=== PATIENT | male | born 1975 | race Caucasian/White ===

== ENCOUNTER 2017-04-26 11:36 | Inpatient (IN) | payer OTHER ==
[~2017-04-26] VITALS: Ht 177.8 cm; Wt 85.2 kg
[2017-04-26 11:45] VITALS: Ht 177.8 cm; Wt 85.2 kg
[2017-04-26] MEDS ORDERED: SODIUM CHLORIDE 0.9% 1000ML 1,000 ML IV ONE (12:15)
[2017-04-26] MEDS ORDERED: ONDANSETRON INJ 2 MG/ML 2 ML VIAL IV PRN ×3 (12:15→18:45)
--- NOTE | 2017-04-26 12:24 | EMERGENCY ROOM VISIT NOTE ---
History Report prepared by Oralia: Memo Cox Under the Supervision of: Dr. Eleno Jon M.D. First contact with patient: 12:01 Chief Complaint: ABDOMINAL PAIN Stated Complaint: ABD. 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 Woke this am with fever, sweating, nausea, vomiting, abd pain into back. "It's really hard to pee too". Hx of kidney stones History of Present Illness The patient is a 41 year old male who presents to the Emergency Room with complaints of constant abdominal pain and tightness starting last night after doing some heavy lifting loading his truck. He states that he then went to bed and woke up two hours later nauseous, vomiting, diaphoretic, and having pain that goes into his back. He additionally states that he had some hematuria, and he was not able to urinate very much. He additionally states that his last bowel movement was yesterday morning. The patient states that he is not currently on any blood thinners. Source of History: patient Onset: last night Position: abdomen Quality: other (tight) Timing: constant Associated Symptoms: + nausea, + vomiting, + back pain, + urinary symptoms Review of Systems All systems have been listed, reviewed, and are negative other than those previously mentioned. Please see Additional Medical History Sheet. Past Medical & Surgical Medical Problems: (1) Kidney stone Social History Smoking Status: Current Every Day Smoker Marital Status: Occupation Status: employed Current/Historical Medications No Active Prescriptions or Reported Meds Allergies Coded Allergies: No Known Allergies (Unverified , 04/26/17) Physical Exam Vital Signs Date Time Temp Pulse Resp B/P (MAP) Pulse Ox O2 Delivery O2 Flow Rate FiO2 04/26/17 19:40 81 16 110/74 95 Nasal Cannula 4 04/26/17 19:25 37.4 80 16 110/73 95 Nasal Cannula 4 04/26/17 19:15 82 16 123/76 95 Nasal Cannula 4 04/26/17 19:05 89 16 130/79 93 Mask 12 04/26/17 18:55 89 16 130/79 93 Mask 12 04/26/17 18:46 37.3 93 16 135/78 94 Mask 10 04/26/17 15:39 96 20 132/98 98 04/26/17 14:08 72 16 128/88 98 Room Air 04/26/17 12:48 74 04/26/17 12:24 73 20 130/90 97 Room Air 04/26/17 12:24 97 Room Air 04/26/17 11:45 36.8 89 20 130/92 96 Room Air Physical Exam GENERAL: Patient awake, alert, oriented x 3. Patient follows commands. Patient does not appear toxic. Patient is adequately hydrated and well- nourished. SKIN: No erythema, pallor, cyanosis or rash HEENT: Edentulous. Normal head, pupils equal, reactive to light and accommodation. Oral cavity and posterior pharynx appear normal. Neck: Without adenopathy, no neck vein distention. LUNGS: Clear to auscultation. No wheezes, no rales, no rhonchi. HEART: No murmurs. No gallops. No rubs ABDOMEN: Diffuse tenderness with guarding. No masses, no rebound, no hepatomegaly or splenomegaly. EXTREMITIES: No signs of trauma. No pedal or pretibial edema. No calf or thigh tenderness. NEUROLOGIC: Cranial nerves II-XII within normal limits. No gross motor sensory function deficits. Medical Decision & Procedures ER Provider Diagnostic Interpretation: Radiology results as stated below per my review and radiologist interpretation: CT SCAN OF THE ABDOMEN AND PELVIS WITHOUT CONTRAST CLINICAL HISTORY: Severe mid abdominal pain and nausea. VOMITING COMPARISON STUDY: No previous studies for comparison. TECHNIQUE: CT scan of the abdomen and pelvis was performed from the lung bases to the proximal femurs. Images are reviewed in the axial, sagittal, and coronal planes. IV contrast was not administered for this examination. A dose lowering technique was utilized adhering to the principles of ALARA. CT DOSE: 483.43 mGy.cm FINDINGS: Lower chest: There are by basilar round glass opacities, likely atelectatic. Liver: The unenhanced liver is normal in size, contour, and attenuation. There is no intrahepatic biliary ductal dilatation. Gallbladder: Unremarkable. Spleen: Normal in size and attenuation. Pancreas: Unremarkable. Adrenal glands: Unremarkable. Kidneys: No renal, ureteral, or bladder calculi are visualized. Bowel: There are no transition zones indicate bowel obstruction. There is mild appendiceal dilatation. There is infiltration of the periappendiceal fat. Although there is gas present within the appendiceal lumen, the findings must nevertheless be viewed as suspicious for acute appendicitis. Surgical consultation is recommended.. Peritoneum: There is no intraperitoneal free air or abdominal ascites. Vasculature: The abdominal aorta is normal in course and caliber. Adenopathy: There is a nonpathologically enlarged periappendiceal lymph nodes, likely reactive. Pelvic viscera: There are few prostatic calcifications present. Skeletal structures: No destructive osseous lesions are seen. IMPRESSION: 1. Mild appendiceal dilatation 2. Although there is gas present within the appendiceal lumen, there are extensive periappendiceal inflammatory changes. The findings must therefore be viewed as suspicious for acute appendicitis and surgical consultation is recommended. Electronically signed by: John Mcintyre M.D. 04/26/2017 12:55 PM Dictated Date/Time: 04/26/2017 12:48 PM Laboratory Results 04/26/17 12:00 Red Blood Count 4.86, Mean Corpuscular Volume 94.9, Mean Corpuscular Hemoglobin 33.1, Mean Corpuscular Hemoglobin Concent 34.9, Mean Platelet Volume 10.6, Neutrophils (%) (Auto) 91.5, Lymphocytes (%) (Auto) 3.5, Monocytes (%) (Auto) 4.7, Eosinophils (%) (Auto) 0.0, Basophils (%) (Auto) 0.0, Neutrophils # (Auto) 14.12, Lymphocytes # (Auto) 0.54, Monocytes # (Auto) 0.73, Eosinophils # (Auto) 0.00, Basophils # (Auto) 0.00 04/26/17 12:00 Test 04/26/17 11:45 04/26/17 12:00 Urine Color JACOB Urine Appearance TURBID (CLEAR) Urine pH 5.5 (4.5-7.5) Urine Specific [place] 1.025 (1.000-1.030) Urine Protein 1+ (NEG) Urine Glucose (UA) TRACE (NEG) Urine Ketones 1+ (NEG) Urine Occult Blood NEG (NEG) Urine Nitrite NEG (NEG) Urine Bilirubin 2+ (NEG) Urine Urobilinogen POS (NEG) Urine Leukocyte Esterase NEG (NEG) Urine RBC 0-4 /hpf (0-4) Urine WBC 0 /hpf (0-5) Urine Epithelial Cells 0-5 /lpf (0-5) Urine Amorphous Sediment PRESENT (NONE PRSENT) Urine Bacteria NEG (NEG) White Blood Count 15.44 K/uL (4.8-10.8) Red Blood Count 4.86 M/uL (4.7-6.1) Hemoglobin 16.1 g/dL (14.0-18.0) Hematocrit 46.1 % (42-52) Mean Corpuscular Volume 94.9 fL (80-100) Mean Corpuscular Hemoglobin 33.1 pg (25-34) Mean Corpuscular Hemoglobin Concent 34.9 g/dl (32-36) Platelet Count 232 K/uL (130-400) Mean Platelet Volume 10.6 fL (7.4-10.4) Neutrophils (%) (Auto) 91.5 % Lymphocytes (%) (Auto) 3.5 % Monocytes (%) (Auto) 4.7 % Eosinophils (%) (Auto) 0.0 % Basophils (%) (Auto) 0.0 % Neutrophils # (Auto) 14.12 K/uL (1.4-6.5) Lymphocytes # (Auto) 0.54 K/uL (1.2-3.4) Monocytes # (Auto) 0.73 K/uL (0.11-0.59) Eosinophils # (Auto) 0.00 K/uL (0-0.5) Basophils # (Auto) 0.00 K/uL (0-0.2) RDW Standard Deviation 44.7 fL (36.4-46.3) RDW Coefficient of Variation 12.8 % (11.5-14.5) Immature Granulocyte % (Auto) 0.3 % Immature Granulocyte # (Auto) 0.05 K/uL (0.00-0.02) Anion Gap 6.0 mmol/L (3-11) Est Creatinine Clear Calc Drug Dose 98.3 ml/min Estimated GFR () 106.4 Estimated GFR (Non- 91.8 BUN/Creatinine Ratio 11.3 (10-20) Calcium Level 9.6 mg/dl (8.5-10.1) Total Bilirubin 1.1 mg/dl (0.2-1) Aspartate Amino Transf (AST/SGOT) 21 U/L (15-37) Alanine Aminotransferase (ALT/SGPT) 31 U/L (12-78) Alkaline Phosphatase 66 U/L (45-117) Total Protein 8.4 gm/dl (6.4-8.2) Albumin 4.3 gm/dl (3.4-5.0) Globulin 4.1 gm/dl (2.5-4.0) Albumin/Globulin Ratio 1.0 (0.9-2) Lipase 115 U/L (73-393) Laboratory results as stated above per my review. Medications Administered Medications (Trade) Dose Ordered Sig/Emile Route Start Time Stop Time Status Last Admin Dose Admin Morphine Sulfate (MoRPHine SULFATE INJ) 8 mg Q1H PRN IV 04/26/17 12:15 05/10/17 12:14 04/26/17 14:08 8 MG Ondansetron HCl (Zofran Inj) 4 mg Q1HWA PRN IV 04/26/17 12:15 05/26/17 12:14 04/26/17 12:26 4 MG Sodium Chloride 1,000 ml @ 5,600 mls/hr Q11M ONCE IV 04/26/17 12:15 04/26/17 12:25 DC 04/26/17 12:25 5,600 MLS/HR Cefazolin Sodium (Ancef Inj) 1,000 mg STK-MED ONCE .ROUTE 04/26/17 15:38 04/26/17 15:39 DC 04/26/17 18:31 1,000 MG Heparin Sodium (Porcine) (Heparin Iv Bolus) 10,000 unit STK-MED ONCE .ROUTE 04/26/17 15:39 04/26/17 15:40 DC 04/26/17 18:32 5,000 UNIT Bupivacaine HCl (Marcaine 0.5% MPF Inj) 30 ml STK-MED ONCE .ROUTE 04/26/17 15:39 04/26/17 15:40 DC 04/26/17 18:36 30 ML Cefazolin Sodium (Ancef 2000mg/60 ml D5W) 2,000 mg STK-MED ONCE IV 04/26/17 15:51 04/26/17 15:52 DC 04/26/17 16:02 2,000 MG ECG Indication: abdominal pain Rate (beats per minute): 74 Rhythm: normal sinus Findings: no acute ischemic change, no ectopy ED Course 1201: Past medical records reviewed. The patient was evaluated in room C10. A complete history and physical examination was performed. 1215: Sodium Chloride 1000 ml @ 5600 mls/hr IV, Zofran Inj 4mg IV, Morphine Sulfate Inj 8mg IV 1327: I reevaluated the patient, and I updated him on the treatment plan, and he is agreeable. 1332: Discussed the patient's case with Poornima Tran PA-C. The patient will be evaluated for further management. Medical Decision Nurses notes reviewed. Medical history sheet reviewed. Differential diagnosis includes but is not limited to: Bowel obstruction, abdominal hernia, kidney stone, pancreatitis, and diverticulitis. Patient appears to have an acute abdomen. Multiple labs and imaging were obtained. Please see results as listed above. CT is most consistent with appendicitis. White count is minimally elevated. Pain medications were given. IV fluids were administered. Consultation was obtained with surgery. The patient was taken to the OR for an appendectomy. Medication Reconcilliation Current Medication List: was personally reviewed by me Blood Pressure Screening Patient's blood pressure: Normal blood pressure Consults Time Called: 1327 Consulting Physician: Poornima Tran PA-C Returned Call: [phone] Discussed the patient's case with Poornima Tran PA-C. The patient will be evaluated for further management. Impression Primary Impression: Appendicitis Scribe Attestation The scribe's documentation has been prepared under my direction and personally reviewed by me in its entirety. I confirm that the note above accurately reflects all work, treatment, procedures, and medical decision making performed by me. Departure Information Dispostion Being Evaluated By Surgeon Prescriptions No Active Prescriptions or Reported Meds Referrals No Doctor, Assigned (PCP) Patient Instructions [facility]
[2017-04-26] MEDS: MoRPHine SULFATE 10 MG/ML CARP/VIAL IV PRN ×2 (12:25→14:08)
[2017-04-26 12:27] LABS: COMPLETE YES; HEMATOCRIT 46.1 % (42-52); IG% 0.3 %; LYMPH % 3.5 %; LYMPH ABS # 0.54 K/uL (1.2-3.4); MEAN CELL VOLUME 94.9 fL (80-100); MEAN CORPUSCULAR HEMOGLOBIN 33.1 pg (25-34); MEAN CORPUSCULAR HGB CONC 34.9 g/dl (32-36); MEAN PLATELET VOLUME 10.6 fL (7.4-10.4); MONO % 4.7 %; NEUT % 91.5 %; PLATELET COUNT 232 K/uL (130-400); RED BLOOD COUNT 4.86 M/uL (4.7-6.1); WHITE BLOOD COUNT 15.44 K/uL (4.8-10.8)
[2017-04-26 12:32] LABS: BUN/CREATININE RATIO 11.3 (10-20); CALCIUM 9.6 mg/dl (8.5-10.1); POTASSIUM 3.8 mmol/L (3.5-5.1)
--- NOTE | 2017-04-26 12:56 | DIAGNOSTIC IMAGING REPORT ---
CT SCAN OF THE ABDOMEN AND PELVIS WITHOUT CONTRAST CLINICAL HISTORY: Severe mid abdominal pain and nausea. VOMITING COMPARISON STUDY: No previous studies for comparison. TECHNIQUE: CT scan of the abdomen and pelvis was performed from the lung bases to the proximal femurs. Images are reviewed in the axial, sagittal, and coronal planes. IV contrast was not administered for this examination. A dose lowering technique was utilized adhering to the principles of ALARA. CT DOSE: 483.43 mGy.cm FINDINGS: Lower chest: There are by basilar round glass opacities, likely atelectatic. Liver: The unenhanced liver is normal in size, contour, and attenuation. There is no intrahepatic biliary ductal dilatation. Gallbladder: Unremarkable. Spleen: Normal in size and attenuation. Pancreas: Unremarkable. Adrenal glands: Unremarkable. Kidneys: No renal, ureteral, or bladder calculi are visualized. Bowel: There are no transition zones indicate bowel obstruction. There is mild appendiceal dilatation. There is infiltration of the periappendiceal fat. Although there is gas present within the appendiceal lumen, the findings must nevertheless be viewed as suspicious for acute appendicitis. Surgical consultation is recommended.. Peritoneum: There is no intraperitoneal free air or abdominal ascites. Vasculature: The abdominal aorta is normal in course and caliber. Adenopathy: There is a nonpathologically enlarged periappendiceal lymph nodes, likely reactive. Pelvic viscera: There are few prostatic calcifications present. Skeletal structures: No destructive osseous lesions are seen. IMPRESSION: 1. Mild appendiceal dilatation 2. Although there is gas present within the appendiceal lumen, there are extensive periappendiceal inflammatory changes. The findings must therefore be viewed as suspicious for acute appendicitis and surgical consultation is recommended. Electronically signed by: John Mcintyre M.D. 04/26/2017 12:55 PM Dictated Date/Time: 04/26/2017 12:48 PM
[2017-04-26 13:55] LABS: MANUAL MICROSCOPIC REQUIRED? YES; URINE APPEARANCE TURBID (CLEAR); URINE COLOR AMBER; URINE NITRITE NEG (NEG); URINE PH 5.5 (4.5-7.5); URINE SPECIFIC GRAVITY 1.025 (1.000-1.030); UROBILINOGEN POS (NEG)
[2017-04-26 14:19] LABS: REVIEW REQ? NO; URINE BILIRUBIN 2+ (NEG)
[2017-04-26 14:23] LABS: URINE RBC 0-4 /hpf (0-4); URINE WBC 0 /hpf (0-5)
[2017-04-26 14:24] LABS: URINE AMORPHOUS SEDIMENT PRESENT (NONE PRSENT); URINE BACTERIA NEG (NEG); ZZUR CULT IF INDIC CLEAN CATCH NO
--- NOTE | 2017-04-26 14:37 | History and Physical ---
History & Physical Date Apr 26, 2017. (Poornima Tran ., FARHAN) Chief Complaint Abdominal pain, nausea, vomiting, sweats (Poornima Tran PA-C) History of Present Illness Mr. Rowan is a pleasant 41 year-old male who presented to emergency department today with complaint of generalized abdominal pain with associated nausea, vomiting, chills, fever, and sweats that started abruptly at 2 am. 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 States he never had this type of pain before. Describes pain as chronic generalized pain, dull, and sharp pain in the Right and left lower abdomen. Last bowel movement was yesterday morning. States it was difficulty to urinate because of the pain with a little bit of blood. Denies of any vomiting blood, diarrhea, constipation, blood in stools, black/ tarry stools, chest pain, shortness of breath, or difficulty breathing. Labs showed a leukocytosis of 15 , LFTs within normal limits. Total bilirubin slightly up at 1.1. CT scan of abdomen and pelvis showed slightly dilated appendix with gas present in the appendix lumen and periappendiceal inflammation in which acute appendicitis could not be ruled out. Since being in ER states he still has generalized abdominal pain, nothing seems to make better. Has tried changing positions without any relief. Was given pain medication and helped somewhat. (Poornima Tran, AMBERC) Past Medical/Surgical History Medical Problems: (1) Kidney stone (2) Occasional GERD (Poornima Tran PA-C) Additional History Hepatic Disease: No Endocrine Disorder: No Kidney Disease: No Hypertension: No Heart Disease: No Bleeding Tendencies: No Infectious Diseases: No (Poornima Tran PA-C) Allergies Coded Allergies: No Known Allergies (Unverified , 04/26/17) Home Medications No Active Prescriptions or Reported Meds Physical Examination Skin: warm/dry, no rash Eyes: sclerae normal Head: normocephalic, atraumatic Neck: supple, trachea midline Respiratory/Chest: lungs clear, normal breath sounds, no respiratory distress Cardiovascular: regular rate, rhythm, no edema, no murmur Abdomen / GI: + pertinent finding (generalized tenderness on examination, slightly distended, RLQ and LLQ rebound and guarding on palpation, no peritonitis) Back: normal inspection Extremities: normal inspection Neurologic/Psych: alert, oriented x 3 Addiitonal Comments: CT SCAN OF THE ABDOMEN AND PELVIS WITHOUT CONTRAST CLINICAL HISTORY: Severe mid abdominal pain and nausea. VOMITING COMPARISON STUDY: No previous studies for comparison. TECHNIQUE: CT scan of the abdomen and pelvis was performed from the lung bases to the proximal femurs. Images are reviewed in the axial, sagittal, and coronal planes. IV contrast was not administered for this examination. A dose lowering technique was utilized adhering to the principles of ALARA. CT DOSE: 483.43 mGy.cm FINDINGS: Lower chest: There are by basilar round glass opacities, likely atelectatic. Liver: The unenhanced liver is normal in size, contour, and attenuation. There is no intrahepatic biliary ductal dilatation. Gallbladder: Unremarkable. Spleen: Normal in size and attenuation. Pancreas: Unremarkable. Adrenal glands: Unremarkable. Kidneys: No renal, ureteral, or bladder calculi are visualized. Bowel: There are no transition zones indicate bowel obstruction. There is mild appendiceal dilatation. There is infiltration of the periappendiceal fat. Although there is gas present within the appendiceal lumen, the findings must nevertheless be viewed as suspicious for acute appendicitis. Surgical consultation is recommended.. Peritoneum: There is no intraperitoneal free air or abdominal ascites. Vasculature: The abdominal aorta is normal in course and caliber. Adenopathy: There is a nonpathologically enlarged periappendiceal lymph nodes, likely reactive. Pelvic viscera: There are few prostatic calcifications present. Skeletal structures: No destructive osseous lesions are seen. IMPRESSION: 1. Mild appendiceal dilatation 2. Although there is gas present within the appendiceal lumen, there are extensive periappendiceal inflammatory changes. The findings must therefore be viewed as suspicious for acute appendicitis and surgical consultation is recommended. (Poornima Tran ., PA-C) Diagnosis 41 year-old male who presented to emergency department with generalized abdominal pain with associated nausea, vomiting, chills, and sweats that abruptly started last night at 2 am. Leukocytosis of [address] scan of abdomen and pelvis showing dilated appendix, gas in the lumen of the appendix and periappendiceal inflammation in which acute appendicitis could not be ruled out. Examination shows slight distention, soft, however tender, guarding, and rebound in the RLQ and LLQ. No peritonitis. (Poornima Tran ., PA-C) Plan of Treatment Plan to take patient to operating room for laparoscopic possible open appendectomy. Patient informed of procedure and risks and informed consent obtained. He will be admitted to floor post operatively over night Will be given 2 gms Ancef pre-operatively Dr. Shaver has seen and examined patient (Poornima Tran ., PA-C) I interviewed and examined this patient and reviewed the labs and the radiology studies and I agree with the above note. This patient has symptoms and an exam as well as a mildly elevated white count and CT findings consistent with acute appendicitis.This patient's history, physical findings, laboratories and CT findings are consistent with appendicitis. I have recommended a laparoscopic appendectomy. I explained the possible need to convert to an open procedure. I explained the possible complications associated with those procedures. The patient wishes to go ahead with surgery and has signed a consent form. (Yair Shaver M.D.)
[2017-04-26] MEDS ORDERED: ONDANSETRON INJ 2 MG/ML 2 ML VIAL ONE (15:32)
[2017-04-26] MEDS ORDERED: FENTANYL CITRATE INJ 50 MCG/1 ML 2 ML VIAL ONE ×3 (15:32→18:39)
[2017-04-26] MEDS ORDERED: NEOSTIGMINE METHYLSULFATE 5 MG/5 ML SYR ONE (15:32)
[2017-04-26] MEDS ORDERED: PROPOFOL IV EMULSION 10 MG/ML 20 ML VIAL IV ONE (15:32)
[2017-04-26] MEDS ORDERED: MIDAZOLAM HCL 1 MG/ML 2ML VIAL ONE (15:32)
[2017-04-26] MEDS ORDERED: ROCURONIUM BROMIDE 10 MG/ML 5 ML VIAL ONE (15:32)
[2017-04-26] MEDS ORDERED: LIDOCAINE HCL 2% 2 ML VIAL (20MG/ML) ONE (15:32)
[2017-04-26] MEDS ORDERED: DEXAMETHASONE SOD INJ 4 MG/ML VIAL ONE (15:32)
[2017-04-26] MEDS ORDERED: GLYCOPYRROLATE INJ 0.2 MG/ML VIAL ONE (15:32)
[2017-04-26] MEDS ORDERED: LARYING-O-JET KIT (LTA) ONE ×2 (15:33)
[2017-04-26] MEDS ORDERED: CEFAZOLIN SOD 1 GM VIAL ONE (15:38)
[2017-04-26] MEDS ORDERED: HEPARIN SOD (PORCINE) 1000 UNIT/ML 10 ML VIAL ONE (15:39)
[2017-04-26] MEDS ORDERED: ATROPINE SULFATE 0.1 MG/ML 5ML SYR IV PRN (15:45)
[2017-04-26] MEDS ORDERED: EpHEDrine SULFATE INJ 50 MG/ML AMP IV PRN (15:45)
[2017-04-26] MEDS ORDERED: FENTANYL CITRATE INJ 50 MCG/1 ML 2 ML VIAL IV PRN (15:45)
[2017-04-26] MEDS ORDERED: CEFAZOLIN IV 2,000 MG/60 ML D5W IV ONE (15:51)
[2017-04-26] MEDS ORDERED: KETOROLAC TROMETHAMINE 30 MG/ML VIAL ONE (16:22)
[2017-04-26] MEDS ORDERED: ACETAMINOPHEN 1000 MG/100 ML IV IV ONE (16:55)
[2017-04-26] MEDS: BUPIVACAINE 0.5 % 5 MG/1 ML MPF 30ML VIAL ONE ×2 (18:33→18:36)
--- NOTE | 2017-04-26 18:39 | [facility] Post Operative Brief Note ---
Immediate Operative Summary Operative Date Apr 26, 2017. Pre-Operative Diagnosis Mild appendiceal dilatation Post-Operative Diagnosis Mild appendiceal dilatation Procedure(s) Performed Laparoscopic appendectomy Surgeon Dr. Yair Shaver Residence Leasing Agent Surgeon(s) Poornima Tran-LON, Poornima [place] Estimated Blood Loss 50 cc Findings See dictation Specimens A: Appendix Drains One J-P along right colonic gutter into pelvis Anesthesia General Complication(s) None Disposition Recovery Room / PACU
--- NOTE | 2017-04-26 19:08 | Anesthesiology Progress Note ---
Anesthesia Post Op Note Date & Time Apr 26, 2017 at 19:08 Vital Signs Pain Intensity: 1 Vital Signs Past 12 Hours Date Time Temp Pulse Resp B/P (MAP) Pulse Ox O2 Delivery O2 Flow Rate FiO2 04/26/17 19:05 89 16 130/79 93 Mask 12 04/26/17 18:55 89 16 130/79 93 Mask 12 04/26/17 18:46 37.3 93 16 135/78 94 Mask 10 04/26/17 15:39 96 20 132/98 98 04/26/17 14:08 72 16 128/88 98 Room Air 04/26/17 12:48 74 04/26/17 12:24 73 20 130/90 97 Room Air 04/26/17 12:24 97 Room Air 04/26/17 11:45 36.8 89 20 130/92 96 Room Air Notes Mental Status: alert / awake / arousable, participated in evaluation Pt Amnestic to Procedure: Yes Nausea / Vomiting: adequately controlled Pain: adequately controlled Airway Patency, RR, SpO2: stable & adequate BP & HR: stable & adequate Hydration State: stable & adequate Anesthetic Complications: no major complications apparent
[2017-04-26 20:15] VITALS: BP 107/66; PULSE 75; TEMP 37.3; O2SAT 96; O2SAT 97
[2017-04-26 20:45] VITALS: BP 110/69; PULSE 81; TEMP 37.5; O2SAT 96
[2017-04-26] MEDS: MoRPHine SULFATE 4 MG/ML 1 ML CARP\\VIAL IV PRN (21:04)
[2017-04-26 21:15] VITALS: BP 104/68; PULSE 70; TEMP 37.3; O2SAT 97
--- NOTE | 2017-04-26 22:08 | OPERATIVE REPORT ---
DATE OF OPERATION: 04/26/2017 PREOPERATIVE DIAGNOSIS: Acute appendicitis. POSTOPERATIVE DIAGNOSIS: Same. PROCEDURE: Attempted laparoscopic with completion open appendectomy. SURGEON: Yair Shaver MD OPTICAL INSTRUMENT ASSEMBLER: Poornima Tran PA-C FINDINGS: The appendix was densely adherent to the lateral and posterior abdominal bobby in a retrocecal position. The adhesions obliterated the spaces that could be identified laparoscopically. The base of the appendix for about 2-3 cm was normal in caliber and the base of the appendix as well as the cecum at the base of the appendix was normal. The distal 2/3 of the appendix, however, was dilated and markedly inflamed with areas of gangrene. Its wall was friable and it fractured during dissection. There was no perforation prior, however. There was no abscess. TECHNIQUE: The patient was given a general anesthetic and the area was prepped and draped in the usual sterile fashion. Transverse incision was made below the umbilicus, carried down through the subcutaneous tissue. He had an umbilical hernia that had a defect that was about 3 mm. The hernia sac was amputated and the defect was used to place the trocar. The abdomen was insufflated to a pressure of 15 mmHg with carbon dioxide. The lower midline and left lower quadrant introducers were placed under direct vision through small skin incisions. I initially dissected down the inferior aspect of the cecum, but then I had to roll the cecum medially. The sigmoid colon was dilated as well. There was no evidence of volvulus however. Rolling the cecum medially helped me identify the appendix densely adherent to the lateral abdominal wall. I divided those lateral abdominal wall attachments, which allowed me to visualize the distal 2 cm of the appendix and identified that was gangrenous. In rolling the appendix medially, I attempted to dissect the appendix away from the lateral and posterior abdominal wall; however laparoscopically it was difficult to keep the appendix medial enough to be able to identify the direction of the appendix. The appendix eventually was identified to be extending superiorly and then made U turn and came back down towards the cecum. I did not feel it was prudent to continue laparoscopically. The gas was allowed to escape and the introducers were removed. A Rajiv-Ronan incision was made, carried down through the subcutaneous tissue to the external oblique fascia which was opened transversely. The muscle was split. The internal oblique was opened, muscle split, transversalis split, and the peritoneum was identified, grasped with 2 clamps and incised between. This was opened along the length of the incision. The cecum and the small bowel were packed medially and I was able to identify the appendix. It allowed me then to identify the attachments and divide them using blunt and cautery dissection where appropriate. The portions of the mesoappendix were clamped and ligated with a 2-0 Vicryl suture. The dissection was carried up towards the U shape in the appendix. The elbow was then able to be elevated and brought inferiorly which allowed me then to identify the normal portion of the appendix. Remaining attachments were divided using the clamp-clamp divide and ligate technique until the base was completely cleared. The appendix was amputated with the Endo-WAN stapler and the staple line was oversewn with 3-0 silk Lembert sutures. This was placed back into its anatomic position and the right lower quadrant was irrigated. The irrigation removed. The areas of dissection were inspected and there was no bleeding. A separate stab incision was made above the incision, through which a 10 mm flat Karan-Banda was brought. It was placed along the gutter along the cecum and then down into the pelvis. It was secured with a 3-0 nylon. The peritoneum was closed with a running 2-0 Vicryl. The internal oblique fascia was closed with an 0 PDS and the external oblique fascia was closed with a #1 PDS. The fascia of the umbilical introducer site was closed with interrupted 0 PDS. The skin of all the incisions was closed loosely with prisca. The right lower quadrant incision was gapping. The dressings were placed. The estimated blood loss was 50 mL. Sponge, needle, and instrument counts were correct prior to closure. The patient tolerated the surgical procedure without complication and was transferred to recovery. I attest to the content of the Intraoperative Record and any orders documented therein. Any exceptions are noted below. MARY
[2017-04-26 22:15] VITALS: BP 108/73; PULSE 69; O2SAT 97
[2017-04-26] MEDS: D5W AND 1/2NSS + 20MEQ KCL 1,000 ML IV SCH (22:21)
[2017-04-26] MEDS: PIPERACILL/TAZOBAC IV 3.375 GM in DEXTROSE 5% 100ML 100 ML IV SCH (22:21)
[2017-04-26 23:15] VITALS: BP 112/75; PULSE 77; TEMP 37; O2SAT 94
[2017-04-26] MEDS: OXYCODONE/ACETAMINOPHEN 5-325 TAB PO PRN (23:16)
[2017-04-27] VITALS (16 sets, daily range): BP systolic 95–134; BP diastolic 56–81; PULSE 80–115; TEMP 36.7–39.3; O2SAT 89–94
[2017-04-27] MEDS: OXYCODONE/ACETAMINOPHEN 5-325 TAB PO PRN ×2 (03:39→08:51)
[2017-04-27] MEDS: PIPERACILL/TAZOBAC IV 3.375 GM in DEXTROSE 5% 100ML 100 ML IV SCH ×2 (05:19→14:17)
[2017-04-27 06:48] LABS: MEAN CELL VOLUME 95.7 fL (80-100); MEAN CORPUSCULAR HEMOGLOBIN 32.7 pg (25-34); MEAN CORPUSCULAR HGB CONC 34.2 g/dl (32-36); MEAN PLATELET VOLUME 10.3 fL (7.4-10.4); PLATELET COUNT 146 K/uL (130-400); RED BLOOD COUNT 3.76 M/uL (4.7-6.1); WHITE BLOOD COUNT 11.87 K/uL (4.8-10.8)
[2017-04-27 07:12] LABS: BASO % 0.1 %; BASO ABS # 0.01 K/uL (0-0.2); COMPLETE YES; IG% 0.3 %; LYMPH % 3.2 %; LYMPH ABS # 0.38 K/uL (1.2-3.4); MONO % 3.7 %; NEUT % 92.7 %
[2017-04-27] MEDS ORDERED: NURSING VERBAL MED ORDER ONE ×2 (07:53→14:45)
[2017-04-27] MEDS: D5W AND 1/2NSS + 20MEQ KCL 1,000 ML IV SCH ×2 (08:03→19:21)
[2017-04-27] MEDS: MoRPHine SULFATE 4 MG/ML 1 ML CARP\\VIAL IV PRN ×3 (08:03→11:32)
[2017-04-27] MEDS ORDERED: ACETAMINOPHEN 325 MG TAB PO PRN ×2 (08:15→08:30)
--- NOTE | 2017-04-27 09:40 | Anesthesiology Progress Note ---
Anesthesia Post Op Note Date & Time Apr 27, 2017 at 09:40 Vital Signs Pain Intensity: 5.0 Vital Signs Past 12 Hours Date Time Temp Pulse Resp B/P (MAP) Pulse Ox O2 Delivery O2 Flow Rate FiO2 04/27/17 07:40 91 Room Air 04/27/17 07:07 37.1 93 18 95/56 (69) 91 Room Air 04/27/17 05:25 37.4 04/27/17 03:48 37.6 80 18 100/65 (77) 93 Room Air 04/26/17 23:15 37.0 77 16 112/75 (87) 94 Room Air 04/26/17 23:15 94 Room Air 04/26/17 22:15 69 18 108/73 (85) 97 Nasal Cannula 2.0 Notes Mental Status: alert / awake / arousable, participated in evaluation Pt Amnestic to Procedure: Yes Nausea / Vomiting: adequately controlled Pain: adequately controlled Airway Patency, RR, SpO2: stable & adequate BP & HR: stable & adequate Hydration State: stable & adequate Anesthetic Complications: no major complications apparent
--- NOTE | 2017-04-27 11:32 | Surgery Progress Note ---
Surgery Progress Note Date of Service Apr 27, 2017. Subjective Post OP Day: 1 + diet, No chest pain, No SOB, No bowel movement, No flatus, No nausea, No vomiting Objective Vital Signs: Date Time Temp Pulse Resp B/P (MAP) Pulse Ox O2 Delivery O2 Flow Rate FiO2 04/27/17 07:40 91 Room Air 04/27/17 07:07 37.1 93 18 95/56 (69) 91 Room Air 04/27/17 05:25 37.4 04/27/17 03:48 37.6 80 18 100/65 (77) 93 Room Air 04/26/17 23:15 37.0 77 16 112/75 (87) 94 Room Air 04/26/17 23:15 94 Room Air 04/26/17 22:15 69 18 108/73 (85) 97 Nasal Cannula 2.0 04/26/17 21:30 Nasal Cannula 3.0 04/26/17 21:15 37.3 70 20 104/68 (80) 97 Nasal Cannula 2.0 04/26/17 20:45 37.5 81 12 110/69 (83) 96 Nasal Cannula 4.0 04/26/17 20:15 37.3 75 12 107/66 (80) 97 Nasal Cannula 4.0 04/26/17 20:15 96 Nasal Cannula 3.0 04/26/17 19:55 80 16 106/70 95 Nasal Cannula 4 04/26/17 19:40 81 16 110/74 95 Nasal Cannula 4 04/26/17 19:25 37.4 80 16 110/73 95 Nasal Cannula 4 04/26/17 19:15 82 16 123/76 95 Nasal Cannula 4 04/26/17 19:05 89 16 130/79 93 Mask 12 04/26/17 18:55 89 16 130/79 93 Mask 12 04/26/17 18:46 37.3 93 16 135/78 94 Mask 10 04/26/17 15:39 96 20 132/98 98 04/26/17 14:08 72 16 128/88 98 Room Air 04/26/17 12:48 74 04/26/17 12:24 73 20 130/90 97 Room Air 04/26/17 12:24 97 Room Air 04/26/17 11:45 36.8 89 20 130/92 96 Room Air General Appearance: WD/WN, + mild distress Head: normocephalic, atraumatic Neck: trachea midline Respiratory/Chest: no respiratory distress, no accessory muscle use Abdomen: normal bowel sounds, soft, + distended, + tenderness (appropriate post op) Incision(s): clean, dry (dressings clean and dry, some drainge present but not soaked, incisions not inspected ) Laboratory Results: Results Past 24 Hours Test 04/26/17 11:45 04/26/17 12:00 04/27/17 06:03 Range/Units Urine Color JACOB Urine Appearance TURBID CLEAR Urine pH 5.5 4.5-7.5 Urine Specific [place] 1.025 1.000-1.030 Urine Protein 1+ NEG Urine Glucose (UA) TRACE NEG Urine Ketones 1+ NEG Urine Occult Blood NEG NEG Urine Nitrite NEG NEG Urine Bilirubin 2+ NEG Urine Urobilinogen POS NEG Urine Leukocyte Esterase NEG NEG Urine RBC 0-4 0-4 /hpf Urine WBC 0 0-5 /hpf Urine Epithelial Cells 0-5 0-5 /lpf Urine Amorphous Sediment PRESENT NONE PRSENT Urine Bacteria NEG NEG White Blood Count 15.44 11.87 4.8-10.8 K/uL Red Blood Count 4.86 3.76 4.7-6.1 M/uL Hemoglobin 16.1 12.3 14.0-18.0 g/dL Hematocrit 46.1 36.0 42-52 % Mean Corpuscular Volume 94.9 95.7 80-100 fL Mean Corpuscular Hemoglobin 33.1 32.7 25-34 pg Mean Corpuscular Hemoglobin Concent 34.9 34.2 32-36 g/dl Platelet Count 232 146 130-400 K/uL Mean Platelet Volume 10.6 10.3 7.4-10.4 fL Neutrophils (%) (Auto) 91.5 92.7 % Lymphocytes (%) (Auto) 3.5 3.2 % Monocytes (%) (Auto) 4.7 3.7 % Eosinophils (%) (Auto) 0.0 0.0 % Basophils (%) (Auto) 0.0 0.1 % Neutrophils # (Auto) 14.12 11.01 1.4-6.5 K/uL Lymphocytes # (Auto) 0.54 0.38 1.2-3.4 K/uL Monocytes # (Auto) 0.73 0.44 0.11-0.59 K/uL Eosinophils # (Auto) 0.00 0.00 0-0.5 K/uL Basophils # (Auto) 0.00 0.01 0-0.2 K/uL RDW Standard Deviation 44.7 46.7 36.4-46.3 fL RDW Coefficient of Variation 12.8 13.3 11.5-14.5 % Immature Granulocyte % (Auto) 0.3 0.3 % Immature Granulocyte # (Auto) 0.05 0.03 0.00-0.02 K/uL Sodium Level 136 136-145 mmol/L Potassium Level 3.8 3.5-5.1 mmol/L Chloride Level 104 98-107 mmol/L Carbon Dioxide Level 26 21-32 mmol/L Anion Gap 6.0 3-11 mmol/L Blood Urea Nitrogen 11 7-18 mg/dl Creatinine 1.00 0.60-1.40 mg/dl Est Creatinine Clear Calc Drug Dose 98.3 ml/min Estimated GFR () 106.4 Estimated GFR (Non- 91.8 BUN/Creatinine Ratio 11.3 10-20 Random Glucose 133 70-99 mg/dl Calcium Level 9.6 8.5-10.1 mg/dl Total Bilirubin 1.1 0.2-1 mg/dl Aspartate Amino Transf (AST/SGOT) 21 15-37 U/L Alanine Aminotransferase (ALT/SGPT) 31 12-78 U/L Alkaline Phosphatase 66 45-117 U/L Total Protein 8.4 6.4-8.2 gm/dl Albumin 4.3 3.4-5.0 gm/dl Globulin 4.1 2.5-4.0 gm/dl Albumin/Globulin Ratio 1.0 0.9-2 Lipase 115 73-393 U/L Assessment & Plan POD #1 s/p Laparoscopic converted to open appendectomy - vitals stable, febrile overnight, resolved - Leukocytosis improving - moderate-severe pain - urinating without difficulty - no flatus - 40 mls DINH drain output since surgery Plan: Was having severe pain, therefore will start Dilaudid 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 Pain moderate but improving with Dilaudid Will obtain set of blood cultures x 2 Continue IV antibiotics, IV fluids, Regular diet, OOB to chair and ambulation with assistance Dr. Shaver has seen and examined patient, agrees with above
[2017-04-27] MEDS ORDERED: NALOXONE HCL 0.4 MG/1 ML VIAL/CARP IV PRN (12:15)
--- NOTE | 2017-04-27 12:51 | Discharge Instructions ---
Discharge Instructions Date of Service Apr 27, 2017. Admission Reason for Admission: Appendicitis Discharge Discharge Diagnosis / Problem: same Discharge Goals Goal(s): Decrease discomfort, Improve function Activity Recommendations Activity Limitations: as noted below No heavy lifting over 10 pounds for 6 weeks No strenuous activity for 2-4 weeks, until cleared by surgeon No submerging incisions underwater for 2 weeks or until incisions are healed No driving while taking narcotic pain medication or until you are pain free (at least 2 weeks) Light activity and walking is encouraged to prevent blood clots Instructions / Follow-Up Instructions / Follow-Up You will need a follow-up with your primary care doctor in 1-2 weeks You will need your prisca out in 12 days from your surgery You will need to see surgeon early next week for follow-up, Dr. Mcfarlane's office (office # ), appointment Sunday at 10:20 am. You may shower and gently clean incisions with soap and water however no submerging incisions underwater as noted above You may want to keep incisions covered with gauze if they drain slightly Current Hospital Diet Patient's current hospital diet: Regular Diet Discharge Diet Recommended Diet: Regular Diet Procedures Procedures Performed: Attempted Laparoscopic Appendectomy converted to open appendectomy Pending Studies Studies pending at discharge: no Medical Emergencies . Who to Call and When: Medical Emergencies: If at any time you feel your situation is an emergency, please call 911 immediately. . Non-Emergent Contact Non-Emergency issues call your: Primary Care Provider, Surgeon Call Non-Emergent contact if: you have a fever, temperature is above 101.5, your pain is not controlled, wound has increased drainage, wound has increased redness, wound has increased pain . "Provider Documentation" section prepared by Poornima Tran. . VTE Core Measure Inpt VTE Proph given/why not?: SCD's [place] Drug Monitoring Program Search Results: patient reviewed within database, no issues identified
[2017-04-27] MEDS: HYDROmorphone HCL 0.5MG/ML 50 ML CASSETTE IV PRN ×3 (13:12→22:49)
[2017-04-27] MEDS: SODIUM CHLORIDE 0.9% 1000ML 1,000 ML IV SCH (13:13)
[2017-04-27] MEDS: ACETAMINOPHEN 325 MG TAB PO PRN (19:21)
[2017-04-28] VITALS (10 sets, daily range): BP systolic 109–137; BP diastolic 69–85; PULSE 78–105; TEMP 37.1–39.4; O2SAT 90–93
[2017-04-28] MEDS: D5W AND 1/2NSS + 20MEQ KCL 1,000 ML IV SCH ×2 (04:11→14:33)
[2017-04-28 06:04] LABS: BASO % 0.2 %; BASO ABS # 0.01 K/uL (0-0.2); COMPLETE YES; LYMPH % 13.7 %; LYMPH ABS # 0.85 K/uL (1.2-3.4); MEAN CELL VOLUME 95.4 fL (80-100); MEAN CORPUSCULAR HEMOGLOBIN 32.3 pg (25-34); MEAN CORPUSCULAR HGB CONC 33.8 g/dl (32-36); MEAN PLATELET VOLUME 10.7 fL (7.4-10.4); MONO % 7.4 %; NEUT % 78.7 %; PLATELET COUNT 132 K/uL (130-400); RED BLOOD COUNT 4.09 M/uL (4.7-6.1)
[2017-04-28] MEDS: ACETAMINOPHEN 325 MG TAB PO PRN ×2 (06:13→21:21)
--- NOTE | 2017-04-28 06:44 | Surgery Progress Note ---
Surgery Progress Note Date of Service Apr 28, 2017. Subjective no complaints- looks good- had recurrent fever good urine output, serosang drainage Objective Vital Signs: Date Time Temp Pulse Resp B/P (MAP) Pulse Ox O2 Delivery O2 Flow Rate FiO2 04/28/17 06:12 39.4 04/28/17 03:25 37.7 04/28/17 03:15 39.1 105 18 137/78 (97) 90 Room Air 04/27/17 23:30 36.9 04/27/17 23:30 Room Air 04/27/17 22:53 37.8 92 Room Air 04/27/17 22:50 38.1 90 16 110/74 (86) 89 Room Air 04/27/17 22:13 36.7 04/27/17 18:26 38.2 04/27/17 17:29 39.3 93 18 121/81 (94) 94 Nasal Cannula 2.0 04/27/17 16:24 38.6 87 20 112/73 (86) 94 Nasal Cannula 2.0 04/27/17 15:45 Nasal Cannula 2.0 04/27/17 15:25 38.1 115 20 110/71 (84) 92 Nasal Cannula 2.0 04/27/17 14:58 38.1 04/27/17 14:23 39.3 107 18 119/73 (88) 92 Nasal Cannula 2.0 04/27/17 13:15 39.3 100 16 126/81 (96) 94 Nasal Cannula 2.0 04/27/17 12:13 37.3 90 18 134/81 (98) 94 Nasal Cannula 2.0 04/27/17 07:40 91 Room Air 04/27/17 07:07 37.1 93 18 95/56 (69) 91 Room Air General Appearance: no apparent distress Respiratory/Chest: no respiratory distress Abdomen: + distended Incision(s): intact Laboratory Results: Results Past 24 Hours Test 04/28/17 05:36 Range/Units White Blood Count 6.20 4.8-10.8 K/uL Red Blood Count 4.09 4.7-6.1 M/uL Hemoglobin 13.2 14.0-18.0 g/dL Hematocrit 39.0 42-52 % Mean Corpuscular Volume 95.4 80-100 fL Mean Corpuscular Hemoglobin 32.3 25-34 pg Mean Corpuscular Hemoglobin Concent 33.8 32-36 g/dl Platelet Count 132 130-400 K/uL Mean Platelet Volume 10.7 7.4-10.4 fL Neutrophils (%) (Auto) 78.7 % Lymphocytes (%) (Auto) 13.7 % Monocytes (%) (Auto) 7.4 % Eosinophils (%) (Auto) 0.0 % Basophils (%) (Auto) 0.2 % Neutrophils # (Auto) 4.88 1.4-6.5 K/uL Lymphocytes # (Auto) 0.85 1.2-3.4 K/uL Monocytes # (Auto) 0.46 0.11-0.59 K/uL Eosinophils # (Auto) 0.00 0-0.5 K/uL Basophils # (Auto) 0.01 0-0.2 K/uL RDW Standard Deviation 44.8 36.4-46.3 fL RDW Coefficient of Variation 12.9 11.5-14.5 % Immature Granulocyte % (Auto) 0.0 % Immature Granulocyte # (Auto) 0.00 0.00-0.02 K/uL Microbiology Results 04/27/17 Blood Culture, Received Pending 04/27/17 Blood Culture, Received Pending Assessment & Plan 04/28/17- fever last pm- overall looks good- 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 Leave drain
[2017-04-28] MEDS ORDERED: PIPERACILL/TAZOBAC CONSULT ACTIVE PRN (07:00)
[2017-04-28] MEDS: PIPERACILL/TAZOBAC IV 3.375 GM in DEXTROSE 5% 100ML 100 ML IV SCH ×3 (07:05→22:39)
[2017-04-28] MEDS: HYDROmorphone HCL 0.5MG/ML 50 ML CASSETTE IV PRN ×3 (07:10→22:55)
--- NOTE | 2017-04-28 07:21 | DIAGNOSTIC IMAGING REPORT ---
CHEST ONE VIEW PORTABLE CLINICAL HISTORY: Fever. COMPARISON STUDY: No previous studies for comparison. FINDINGS: There is no pneumothorax or pleural effusion. There is no evidence of pulmonary edema. Cardiac size is at the upper limits of normal. Bibasilar opacities are present which are predominantly linear in configuration. IMPRESSION: Moderate bibasilar opacities. The configuration favors atelectasis although an infectious process could appear similar. Electronically signed by: Reynaldo Castillo M.D. 04/28/2017 7:19 AM Dictated Date/Time: 04/28/2017 7:18 AM
[2017-04-28] MEDS: SODIUM CHLORIDE 0.9% 1000ML 1,000 ML IV SCH (12:37)
[2017-04-28] MEDS ORDERED: CALCIUM CARBONATE 500 MG CHEWABLE PO PRN (18:45)
[2017-04-28] MEDS ORDERED: NURSING VERBAL MED ORDER ONE (18:45)
[2017-04-29] MEDS: D5W AND 1/2NSS + 20MEQ KCL 1,000 ML IV SCH (01:41)
[2017-04-29 03:10] VITALS: BP 119/80; PULSE 79; TEMP 37.1; O2SAT 93
[2017-04-29 05:29] LABS: HEMATOCRIT 39.9 % (42-52); MEAN CORPUSCULAR HEMOGLOBIN 32.4 pg (25-34); MEAN CORPUSCULAR HGB CONC 34.1 g/dl (32-36); MEAN PLATELET VOLUME 10.4 fL (7.4-10.4); PLATELET COUNT 118 K/uL (130-400); WHITE BLOOD COUNT 4.67 K/uL (4.8-10.8)
[2017-04-29] MEDS ORDERED: IBUPROFEN 600 MG TAB PO PRN (05:30)
[2017-04-29 05:55] LABS: BUN/CREATININE RATIO 5.9 (10-20); CALCIUM 8.6 mg/dl (8.5-10.1); CREATININE 0.94 mg/dl (0.60-1.40); MAGNESIUM 2.1 mg/dl (1.8-2.4); PHOSPHORUS 2.3 mg/dl (2.5-4.9); POTASSIUM 4.6 mmol/L (3.5-5.1)
--- NOTE | 2017-04-29 06:28 | Surgery Progress Note ---
Surgery Progress Note Date of Service Apr 29, 2017. Subjective resting comfortably overnight- fever last pm clinically doing well- positive bm/flatus- min pain wound showed mild erythema- will recheck this am Objective Vital Signs: Date Time Temp Pulse Resp B/P (MAP) Pulse Ox O2 Delivery O2 Flow Rate FiO2 04/29/17 03:10 37.1 79 18 119/80 (93) 93 Room Air 04/28/17 23:31 37.1 78 16 122/79 (93) 92 Room Air 04/28/17 23:30 Room Air 04/28/17 22:38 37.7 04/28/17 20:25 39.3 90 16 121/78 (92) 93 Room Air 04/28/17 16:15 Room Air 04/28/17 15:50 39.4 100 16 131/85 (100) 92 Room Air 04/28/17 07:53 37.5 91 18 109/69 (82) 92 Room Air 04/28/17 07:30 92 Room Air 04/28/17 06:56 37.8 General Appearance: no apparent distress Respiratory/Chest: no respiratory distress Abdomen: + pertinent finding (mild distention) Incision(s): drainage (serosang) Laboratory Results: Results Past 24 Hours Test 04/29/17 05:12 Range/Units White Blood Count 4.67 4.8-10.8 K/uL Red Blood Count 4.20 4.7-6.1 M/uL Hemoglobin 13.6 14.0-18.0 g/dL Hematocrit 39.9 42-52 % Mean Corpuscular Volume 95.0 80-100 fL Mean Corpuscular Hemoglobin 32.4 25-34 pg Mean Corpuscular Hemoglobin Concent 34.1 32-36 g/dl RDW Standard Deviation 44.1 36.4-46.3 fL RDW Coefficient of Variation 12.8 11.5-14.5 % Platelet Count 118 130-400 K/uL Mean Platelet Volume 10.4 7.4-10.4 fL Sodium Level 138 136-145 mmol/L Potassium Level 4.6 3.5-5.1 mmol/L Chloride Level 105 98-107 mmol/L Carbon Dioxide Level 29 21-32 mmol/L Anion Gap 4.0 3-11 mmol/L Blood Urea Nitrogen 6 7-18 mg/dl Creatinine 0.94 0.60-1.40 mg/dl Est Creatinine Clear Calc Drug Dose 104.6 ml/min Estimated GFR () 114.6 Estimated GFR (Non- 98.9 BUN/Creatinine Ratio 5.9 10-20 Random Glucose 113 70-99 mg/dl Calcium Level 8.6 8.5-10.1 mg/dl Phosphorus Level 2.3 2.5-4.9 mg/dl Magnesium Level 2.1 1.8-2.4 mg/dl Assessment & Plan 04/29/17- recurrent fever- afeb overnight- cont IV atbx recheck wound- may need CT if fevers persist- wbc ok yesterday , had some atelectasis. Ambulate minimal erythema of wound- removed one staple and probed wound- no fluid collection. 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 Leave drain
[2017-04-29] MEDS: PIPERACILL/TAZOBAC IV 3.375 GM in DEXTROSE 5% 100ML 100 ML IV SCH ×3 (06:35→22:42)
[2017-04-29] MEDS ORDERED: HYDROCODONE/ACETAMOPHEN 5/325MG TAB PO PRN ×2 (06:45)
[2017-04-29] MEDS ORDERED: HYDROmorphone INJ 0.5 MG/0.5 ML SYR IV PRN (06:45)
[2017-04-29] MEDS ORDERED: HYDROmorphone INJ 1 MG/ML SYR IV PRN (06:45)
[2017-04-29 07:34] VITALS: BP 119/73; PULSE 77; TEMP 37.5; O2SAT 95
[2017-04-29] MEDS ORDERED: NURSING VERBAL MED ORDER ONE (11:15)
[2017-04-29] MEDS ORDERED: POLYETHYLENE (MIRALAX) 17 GM PACK PO ONE (11:30)
[2017-04-29 15:00] VITALS: BP 121/80; PULSE 81; TEMP 37.5; O2SAT 94
--- NOTE | 2017-04-29 16:57 | DIAGNOSTIC IMAGING REPORT ---
CT SCAN OF THE BRAIN WITHOUT IV CONTRAST CLINICAL HISTORY: Left thigh numbness. COMPARISON STUDY: No priors. TECHNIQUE: Unenhanced axial CT scan of the brain is performed from the vertex to the skull base. Automated dose control exposure was utilized. A dose lowering technique was utilized adhering to the principles of ALARA. CT DOSE: 1594.61 mGy.cm FINDINGS: Brain parenchyma: There is minimal subcortical and periventricular microangiopathic disease, advanced for age. There is no hemorrhage, mass effect, or evidence of acute territorial ischemia by CT criteria. [place]-white matter is preserved. No extra-axial fluid collection is seen. Ventricles, sulci, cisterns: Normal in configuration. Intracranial vasculature: Foci of atherosclerotic calcification are seen in the cavernous carotid arteries. Calvarium: Unremarkable. Sinuses and mastoids: The visualized paranasal sinuses are clear. The mastoid air cells are well pneumatized. Orbits: The bony orbits are grossly intact. IMPRESSION: There is no hemorrhage, mass effect, or evidence of acute territorial ischemia by CT criteria. Electronically signed by: Leopoldo Allan M.D. 04/29/2017 4:56 PM Dictated Date/Time: 04/29/2017 4:54 PM
--- NOTE | 2017-04-29 21:00 | DIAGNOSTIC IMAGING REPORT ---
CT SCAN OF THE LUMBAR SPINE WITHOUT IV CONTRAST CLINICAL HISTORY: Left thigh numbness. COMPARISON STUDY: Abdominal CT dated 04/26/2017. TECHNIQUE: CT scan of lumbar spine is performed from the lower thoracic spine to the sacrum. Images reviewed in the axial, sagittal, and coronal planes. IV contrast was not administered for this examination. A dose lowering technique was utilized adhering to the principles of ALARA. CT DOSE: Reported separately under the concurrently performed CT scan of the brain. FINDINGS: The skeletal structures are well mineralized. There is no evidence of fracture or malalignment involving the lumbar spine. Vertebral body height and alignment are maintained. Tiny anterior osteophytes are seen throughout. No lytic or blastic lesions are seen. The transverse and spinous processes are intact. There is no evidence of spondylolysis. There is mild to moderate disc space narrowing at L5 to S1. The remaining disc spaces are preserved. Posterior disc bulge is seen at L5 to S1. No large disc herniation is identified and there is no significant acquired compromise of the central canal suspected. No high-grade neural foraminal stenosis is seen. The visualized sacrum and bony pelvis appear intact. The paraspinous soft tissues are within normal limits. Stranding and fluid in the right lower quadrant is partially visualized. Fluid is seen tracking along the right psoas muscle. IMPRESSION: 1. No acute bony abnormality is seen involving the lumbosacral spine. 2. Mild disc bulge is noted at L5 to S1. There is no evidence of significant central canal compromise. 3. Inflammatory change and fluid are partially seen in the right lower quadrant of the abdomen. This is likely related to a recent diagnosis of appendicitis. See report of abdominal CT dated 04/26/2017 for detailed intra-abdominal findings. Dictated: 04/29/2017 4:57 PM Transcribed: 04/29/2017 9:00 PM [place] Electronically signed by: Leopoldo Allan M.D. 04/29/2017 9:04 PM Dictated Date/Time: 04/29/2017 4:57 PM
[2017-04-29 22:50] VITALS: BP 116/73; PULSE 75; TEMP 37.6; O2SAT 93
[2017-04-29 23:30] VITALS: TEMP 37.1
[2017-04-30] MEDS: PIPERACILL/TAZOBAC IV 3.375 GM in DEXTROSE 5% 100ML 100 ML IV SCH ×2 (06:18→15:25)
[2017-04-30 06:48] LABS: CREATININE 0.96 mg/dl (0.60-1.40)
[2017-04-30 07:27] VITALS: BP 114/72; PULSE 64; TEMP 37.4; O2SAT 94
[2017-04-30] MEDS: ACETAMINOPHEN 325 MG TAB PO PRN ×2 (09:02→21:28)
--- NOTE | 2017-04-30 09:40 | INTERNAL MEDICINE CONSULTATION ---
DATE OF CONSULTATION: 04/29/2017 CHIEF COMPLAINT: Left thigh numbness on the lateral side. The patient is status post appendectomy. HISTORY OF PRESENT ILLNESS: This 41-year-old male with no significant past medical history, is status post laparoscopic which was converted to open appendectomy. Post appendectomy, the patient has some temp spikes and he is on IV Zosyn. No temp spikes today. Otherwise, tolerating diet and ambulating fine, hemodynamically stable, but we are consulted because he developed some left thigh numbness last night which was getting progressively worsened on the lateral side. The patient was able to ambulate on the leg. There is no weakness in the leg. He has numbness, and when touched, he can feel the pressure, but he describes as feeling numb. No history of back pains. Denies any other weakness or numbness. Denies any headaches. No blurred vision, no dizziness. No chest pain, no shortness of breath, no cough, no fever, no abdominal pain, no nausea, no vomiting. Normal bladder movements. Eating okay, on regular diet. ALLERGIES: No known drug allergies. PAST MEDICAL HISTORY: As mentioned above. PAST SURGICAL HISTORY: Open appendectomy. MEDICATIONS AT HOME: None. FAMILY HISTORY: Significant for mother had diabetes and heart disease. Also cancer in the family. SOCIAL HISTORY: Smokes about a pack a day since last 30 years on and off and he is a current smoker. Drinks only on the weekends, about 12 packs of beers. Denies any drug abuse. 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 REVIEW OF SYMPTOMS: As per HPI. Rest of review of systems negative. PHYSICAL EXAMINATION: GENERAL: The patient is of moderate build, not in distress. VITAL SIGNS: Temperature 37.5, pulse 81, respiratory rate 20, blood pressure 121/80, oxygen 94% on room air. HEENT: No pallor, no icterus. NECK: No JVD, no neck masses, no carotid bruits. CARDIOVASCULAR: S1, S2 heard. Regular rate and rhythm. No murmur, no gallop. RESPIRATORY: Normal AP diameter. No accessory muscle use. No wheezing, no crackles. ABDOMEN: Soft, bowel sounds present, nontender. No distention. CENTRAL NERVOUS SYSTEM: Cranial nerves II-XII grossly intact. Pulse 5/5 in all extremities. No pronator drift. Coordination and movements normal. Ptzolx-[id number] test normal. Heel to wong test normal. The patient says on the lateral part of the left thigh, he only feels pressure but does not have a good sensation. EXTREMITIES: No edema, no erythema. LABORATORY DATA: WBC 4.6, hemoglobin 13.6, hematocrit 39.9, platelets 118. Sodium 138, potassium 4.6, chloride 105, bicarbonate 29, BUN 6, creatinine 0.9, serum glucose 113, phosphorus 2.3, magnesium 2.1. Chest x-ray done yesterday showed bilateral moderate bibasilar opacities, most likely atelectasis. ASSESSMENT AND PLAN: This is a 41-year-old male status post open appendectomy. We are consulted for left thigh numbness. 1. Left thigh numbness, mostly lateral side. The patient does not have back pain and there is no weakness and able to ambulate, just feels somewhat decreased sensation on the lateral part of the left thigh. This has been going on since last night. We will get a CAT scan of the head and CAT scan of the lumbar spine and monitor. Most likely nerve compression in the back when lying on the bed. We will follow those imaging studies.We will also check vitamin b12 and b1 and folic acid as patient drinks 12 pack of beers l on weekends. 2. Status post appendectomy, open. Temp spike post appendectomy, on IV Zosyn. Management as per surgery and diet as per surgery. 3. Deep vein thrombosis prophylaxis, SCDs and TEDs and ambulation. DISPOSITION: Monitor in the medical floor and discharge as per surgery. MARY
--- NOTE | 2017-04-30 10:55 | Surgery Progress Note ---
Surgery Progress Note Date of Service Apr 30, 2017. Subjective Post OP Day: 4 + feeling well, + ambulating, + bowel movement, + pain controlled, + diet ( regular diet), No complaints, No chest pain, No SOB, No nausea, No vomiting Objective Vital Signs: Date Time Temp Pulse Resp B/P (MAP) Pulse Ox O2 Delivery O2 Flow Rate FiO2 04/30/17 07:45 Room Air 04/30/17 07:27 37.4 64 16 114/72 (86) 94 Room Air 04/29/17 23:30 37.1 04/29/17 23:30 Room Air 04/29/17 22:50 37.6 75 16 116/73 (87) 93 Room Air 04/29/17 15:30 Room Air 04/29/17 15:00 37.5 81 20 121/80 (94) 94 Room Air Physical Exam: DINH drainage (serous) General Appearance: WD/WN, no apparent distress Head: normocephalic, atraumatic Neck: trachea midline Respiratory/Chest: no respiratory distress, no accessory muscle use Abdomen: non distended, soft, + tenderness (appropriate post op) Incision(s): clean, dry (dressings clean and dry) Laboratory Results: Results Past 24 Hours Test 04/30/17 05:39 04/30/17 10:34 Range/Units Creatinine 0.96 0.60-1.40 mg/dl Est Creatinine Clear Calc Drug Dose 102.4 ml/min Estimated GFR () 111.8 Estimated GFR (Non- 96.4 Assessment & Plan POD #4 s/p Laparoscopic converted to open appendectomy - vitals stable, febrile overnight , nothing this am - Leukocytosis resolved - mild pain, controlled - urinating without difficulty - +BM Plan: Continue pain management as needed continue IV antibiotics- will need either 1-2 more days of IV abx continue regular diet OOB to chair and ambulation daily dressing changes Discussed with patient finding a surgeon out in [place] he will be able to follow-up with and have prisca removed, his is going to look for someone and contact information Dr. Shaver has seen and examined patient, agrees with above
[2017-04-30 15:06] VITALS: BP 125/84; PULSE 71; TEMP 36.7; O2SAT 96
--- NOTE | 2017-04-30 20:29 | Progress Note ---
Medicine Progress Note Date & Time of Visit: Apr 30, 2017 at ~ 17:00 . Subjective Improving. No fever. No chest pain, cough, SOB. No nausea or vomiting. Less postop pain. Persistent paresthesiae left lateral thigh; no motor weakness. . Objective Last 8 Hrs Date Time Temp Pulse Resp B/P (MAP) Pulse Ox O2 Delivery O2 Flow Rate FiO2 04/30/17 16:17 Room Air 04/30/17 15:06 36.7 71 18 125/84 (98) 96 Room Air Physical Exam: General- no distress Lungs- clear Heart- RRR Abdomen- + BS, soft Extremities- no pretibial edema or calf tenderness Neuro- alert; motor strength lower extremities 5/5 . Laboratory Results: Last 24 Hours Test 04/30/17 05:39 04/30/17 11:11 Creatinine 0.96 mg/dl Est Creatinine Clear Calc Drug Dose 102.4 ml/min Estimated GFR () 111.8 Estimated GFR (Non- 96.4 Vitamin B12 Level 427 pg/mL Folate 10.85 ng/mL Assessment & Plan S/PAPPY Doing well postop. Management per surgical team. PARESTHESIAE LEFT THIGH Head CT negative. No significant findings on CT of lumbar spine (mild disc bulge L4-S1 and postsurgical changes from appy noted). 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 Patient advised to establish with PCP back home in [place] and obtain follow- up for ongoing symptoms. Thank you for this consultation. We will follow the patient with you during their hospital stay. You can reach a member of the [facility] Hospitalist Team 02/04 via pager @ . You can reach me via cell @ [phone]. . Current Inpatient Medications: Current Inpatient Medications Medications (Trade) Dose Ordered Sig/Emile Route Start Time Stop Time Status Last Admin Dose Admin Morphine Sulfate (MoRPHine SULFATE INJ) 4 mg Q1H PRN IV 04/26/17 18:45 05/10/17 18:44 04/27/17 11:32 4 MG Ondansetron HCl (Zofran Inj) 4 mg Q6H PRN IV 04/26/17 18:45 05/26/17 18:44 Acetaminophen (Tylenol Tab) 650 mg Q4H PRN PO 04/27/17 15:00 05/27/17 08:29 04/30/17 09:02 650 MG Piperacillin Sod/ Tazobactam Sod 3.375 gm/Dextrose 115 ml @ 28.75 mls/ hr Q8H IV 04/28/17 07:00 05/08/17 06:59 04/30/17 15:25 28.75 MLS/HR Piperacillin Sod/ Tazobactam Sod (Consult) 1 ea UD PRN N/A 04/28/17 07:00 05/28/17 06:59 Calcium Carbonate (Tums Chew Tab) 1,000 mg Q4H PRN PO 04/28/17 18:45 05/28/17 18:44 04/28/17 19:32 1,000 MG Omeprazole (Prilosec - Substitute) 20 mg QAM PO 04/28/17 18:45 05/28/17 18:44 04/30/17 08:59 20 MG Ibuprofen (Motrin Tab) 600 mg Q6 PRN PO 04/29/17 05:30 05/29/17 05:29 Acetaminophen/ Hydrocodone Bitart ([place] 5/325 Tab) 1 tab Q4 PRN PO 04/29/17 06:45 05/13/17 06:44 Acetaminophen/ Hydrocodone Bitart ([place] 5/325 Tab) 2 tab Q4 PRN PO 04/29/17 06:45 05/13/17 06:44 Hydromorphone HCl (Dilaudid Inj) 0.5 mg Q3H PRN IV 04/29/17 06:45 05/13/17 06:44 Hydromorphone HCl (Dilaudid Inj) 1 mg Q3H PRN IV 04/29/17 06:45 05/13/17 06:44
[2017-04-30 23:35] VITALS: BP 115/79; PULSE 78; TEMP 37; O2SAT 96
[2017-05-01] MEDS: PIPERACILL/TAZOBAC IV 3.375 GM in DEXTROSE 5% 100ML 100 ML IV SCH ×3 (01:42→17:45)
[2017-05-01 06:48] LABS: CREATININE 0.98 mg/dl (0.60-1.40)
[2017-05-01 07:01] VITALS: BP 107/70; PULSE 60; TEMP 36.7; O2SAT 94
--- NOTE | 2017-05-01 09:16 | Surgery Progress Note ---
Surgery Progress Note Date of Service May 01, 2017. Subjective Post OP Day: 5 (s/p open appendectomy) + feeling well, + ambulating, + bowel movement, + flatus, + pain controlled, + diet (regular diet), No complaints, No chest pain, No SOB, No nausea, No vomiting Objective Vital Signs: Date Time Temp Pulse Resp B/P (MAP) Pulse Ox O2 Delivery O2 Flow Rate FiO2 05/01/17 08:29 Room Air 05/01/17 07:01 36.7 60 18 107/70 (82) 94 Room Air 04/30/17 23:35 37.0 78 18 115/79 (91) 96 Room Air 04/30/17 23:30 Room Air 04/30/17 16:17 Room Air 04/30/17 15:06 36.7 71 18 125/84 (98) 96 Room Air Physical Exam: DINH drainage (serous drainage) General Appearance: WD/WN, no apparent distress Head: normocephalic, atraumatic Neck: trachea midline Respiratory/Chest: no respiratory distress, no accessory muscle use Abdomen: non distended, soft, + tenderness (appropriate post op, no peritonitis , rigidity, or guarding) Incision(s): clean, dry, intact, no erythema, no drainage, findings (prisca present) Laboratory Results: Results Past 24 Hours Test 04/30/17 11:11 05/01/17 05:38 Range/Units Vitamin B12 Level 427 211-911 pg/mL Folate 10.85 >5.38 ng/mL Creatinine 0.98 0.60-1.40 mg/dl Est Creatinine Clear Calc Drug Dose 100.4 ml/min Estimated GFR () 109.0 Estimated GFR (Non- 94.1 Assessment & Plan POD # 5 s/p laparoscopic converted to open appendectomy -afebrile overnight, vitals stable -pain controlled - ambulating and urinating without difficulty - + bowel function, tolerating regular diet Plan: Continue pain management as needed Continue IV abx continue DINH drain to bulb suction does not need daily dressing changes encourage OOB and ambulation Hopeful switch to oral abx and discharge tomorrow? Discussed with Dr. Shaver who agrees with above
[2017-05-01 15:10] VITALS: O2SAT 94
[2017-05-01 15:13] VITALS: BP 117/79; PULSE 67; TEMP 36.7; O2SAT 97
[2017-05-01] MEDS ORDERED: OXYC-57 PO (15:47)
[2017-05-01] MEDS ORDERED: AMOX875T PO (15:47)
[2017-05-01] MEDS: ACETAMINOPHEN 325 MG TAB PO PRN (19:37)
[2017-05-01 23:50] VITALS: BP 113/71; PULSE 63; TEMP 37; O2SAT 98
[2017-05-02] MEDS: PIPERACILL/TAZOBAC IV 3.375 GM in DEXTROSE 5% 100ML 100 ML IV SCH (02:04)
--- NOTE | 2017-05-02 07:31 | Surgery Progress Note ---
Surgery Progress Note Date of Service May 02, 2017. Subjective Post OP Day: 6 + feeling well, + bowel movement, + flatus, + diet (tolerating regular diet), No complaints, No nausea, No vomiting Objective Vital Signs: Date Time Temp Pulse Resp B/P (MAP) Pulse Ox O2 Delivery O2 Flow Rate FiO2 05/01/17 23:50 37.0 63 16 113/71 (85) 98 Room Air 05/01/17 19:30 Room Air 05/01/17 15:13 36.7 67 18 117/79 (92) 97 Room Air 05/01/17 15:10 94 Room Air 05/01/17 08:29 Room Air Physical Exam: DINH drainage (serosanguinous) Abdomen: normal bowel sounds, non tender, non distended, soft Incision(s): clean, dry, intact, no erythema, no drainage Assessment & Plan Doing well No further temperature elevations D/C drain Can D/C to home Have arranged follow up with a surgeon near his home D/C on Augmentin Instructions discussed
[2017-05-02 07:36] VITALS: BP 111/74; PULSE 63; TEMP 36.4; O2SAT 93
[2017-05-02 08:10] VITALS: BP 111/74; PULSE 63; TEMP 36.4; O2SAT 93
--- NOTE | 2017-05-02 12:15 | Discharge Summary ---
Discharge Summary Dates Admission Date / Time: Apr 26, 2017 at 18:42 Discharge Date: May 02, 2017 Dispostion / Condition Discharge Disposition: Home Condition at Discharge: Good Principal Diagnosis (1) Acute appendicitis Problem List (1) Acute appendicitis Consultations / Procedures Consultations: Hospitalist- left thigh numbness on 04/29/17 Procedures: Laparoscopic converted to open appendectomy with placement of drain Medication Reconciliation New Medications: Amoxicillin & Pot Clavulanate (Augmentin 875-125 mg) 1 Tab Tab 1 TAB PO BID for 7 Days, #14 TAB Oxycodone/Acetaminophen 5MG/325MG (Percocet 5MG/325MG) Tab 1-2 TABLETS PO Q4H PRN for Pain, #30 TAB Admission HPI Per the Admitting provider: Mr. Rowan is a pleasant 41 year-old male who presented to emergency department today with complaint of generalized abdominal pain with associated nausea, vomiting, chills, fever, and sweats that started abruptly at 2 am. 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 States he never had this type of pain before. Describes pain as chronic generalized pain, dull, and sharp pain in the Right and left lower abdomen. Last bowel movement was yesterday morning. States it was difficulty to urinate because of the pain with a little bit of blood. Denies of any vomiting blood, diarrhea, constipation, blood in stools, black/ tarry stools, chest pain, shortness of breath, or difficulty breathing. Labs showed a leukocytosis of 15 , LFTs within normal limits. Total bilirubin slightly up at 1.1. CT scan of abdomen and pelvis showed slightly dilated appendix with gas present in the appendix lumen and periappendiceal inflammation in which acute appendicitis could not be ruled out. Since being in ER states he still has generalized abdominal pain, nothing seems to make better. Has tried changing positions without any relief. Was given pain medication and helped somewhat. Hospital Course (1) Acute appendicitis Patient was taken back to operating room for laparoscopic possible open appendectomy. Given amount of inflammation and a retrocecal appendix, the decision to convert to open was made. Patient tolerated procedure well and was transferred to recovery in stable condition. He was then transferred to medical /surgical floor for post operative care. His post operative orders included diet as tolerated, IV Morphine and PO Percocet as needed for pain, IV zofran, IV Zosyn 3.375 gm IV q 8 hours, SCDs, activity as tolerated, and DINH to bulb suction. POD # 1 he was having significant pain which was not being controlled with IV Morphine or PO Percocet. He was given 12 mg of Morphine IV over a 3 hour time span. A Dilaudid BUILDING MAINTENANCE SUPERINTENDENT was started at 0.2 mg every 10 minutes at needed for pain. In the afternoon of POD # 1 he had a fever of 39.3 and was given Tylenol. His pain was better controlled with Dilaudid. Two blood cultures were obtained given fever. POD #2 still febrile overnight, CXR showed bibasilar opacities favoring atelectasis. No changes, IV antibiotics were continued. POD # 3 Patient was feeling better. Pain controlled and tolerating regular diet. Dilaudid BUILDING MAINTENANCE SUPERINTENDENT was discontinued and PO [place] and IV breakthrough Dilaudid was ordered. He did complain of left thigh numbness therefore medicine was consulted and a CT of the lumbar spine and head were obtained which showed mild disc bulge at L5 to S1, no other abnormalities. POD # 4 continued to feel well, slightly febrile in the evening but resolved. POD # 5 pain controlled, tolerating diet, incisions checked no erythema, blood cultures negative x 2, and output of DINH drain serous. POD # 6 he was afebrile overnight , pain controlled, tolerating diet, ambulating and urinating without difficulty. He was discharged home on POD # 6 in stable condition. He is to follow-up with general surgeon in [place] Sunday of next week once he gets home. Discharge instructions were reviewed with patient. He was discharged with PO Percocet as needed and a 7 day course of PO Augmentin. Discharge Instructions as given to patient Follow up with general surgeon in [place] for staple removal and follow-up. Dr. Shaver talked with office. Follow-up/get established with PCP Copies To Primary Care Provider: No Doctor, Assigned.
== END 2017-05-02 09:05 | disposition home or self-care (01) | DRG 343 ==
LOC: C.EDB 11:39 → C.MSN 18:42 → ENRESERV 19:42 → CANRESERV 19:42 → ENRESERV 20:10
PROVIDERS: ADMIT Surgery; ATTEND Surgery
PROC: 0DTJ0ZZ Resection of Appendix, Open Approach (ICD-10-PCS; principal; 2017-04-26 07:00)
DX: K35.80 Unspecified acute appendicitis (principal); Z53.31 Laparoscopic surgical procedure converted to open procedure; G57.12 Meralgia paresthetica, left lower limb; F17.200 Nicotine dependence, unspecified, uncomplicated; Z87.442 Personal history of urinary calculi; Z83.3 Family history of diabetes mellitus